=== PATIENT | female | born 1935 | race Caucasian/White ===

== ENCOUNTER → 2017-08-08 | Outpatient (CLI) | payer OTHER ==
[~2017-08-08] MED LIST: ASPI-378 PO; DILT60TA27 PO; MET50T PO; METF-370 PO; SIMV-13 PO
[2017-08-08 10:14] LABS: Basophils # (auto) 0.1 uL; Eosinophils # (auto) 0.2 uL; Eosinophils % (auto) 2.6 % (0.0-7.0); Hematocrit 41.8 % (36.0-46.0); Hemoglobin 13.8 g/dL (12.2-16.2); Lymphocytes # (auto) 1.2 uL; Lymphocytes % (auto) 18.2 % (10.0-50.0); Mean Corpuscular Hemoglobin 30.5 pg (28.0-32.0); Mean Corpuscular Volume 92.5 fL (80.0-100.0); Mean Platelet Volume 8.6 fL (6.9-10.8); Monocytes # (auto) 0.5 uL; Monocytes % (auto) 7.7 % (0.0-12.0); Neutrophils # (auto) 4.8 uL; Neutrophils % (auto) 70.5 % (37.0-80.0); Nucleated Red Blood Cells % 0.1 %; Platelet Count (auto) 234 10^3/uL (140-450); Red Cell Distribution Width 13.7 % (11.8-14.3); White Blood Cell 6.7 10^3/uL (4.4-10.8)
[2017-08-08 10:26] LABS: Albumin 3.7 g/dL (3.4-5.0); BUN/Creatinine Ratio 22.7; Bilirubin, Total 0.7 mg/dL (0.2-1.0); Calcium 8.6 mg/dL (8.5-10.1); Potassium 4.4 mmol/L (3.5-5.1); Total Protein 7.3 g/dL (6.4-8.2)
[2017-08-08 10:27] LABS: Urine Bilirubin Negative (Negative); Urine Blood Negative /uL (Negative); Urine Color Yellow (Yellow); Urine Glucose Normal (Normal); Urine Ketone Negative (Negative); Urine Nitrite Negative (Negative); Urine RBC <1 /hpf (0 - 4); Urine Squamous Epithelial Cell FEW /hpf (<5); Urine Urobilinogen Normal (Negative); Urine pH 6.5 (5.0-8.0)
== END | disposition home or self-care (01) ==
LOC: LAB 09:33
PROVIDERS: ATTEND Internal Medicine
DX: I10 Essential (primary) hypertension (principal); E78.2 Mixed hyperlipidemia; E03.9 Hypothyroidism, unspecified; E11.9 Type 2 diabetes mellitus without complications; Z79.899 Other long term (current) drug therapy
CPT/HCPCS: 36415; 80053; 80061; 81001; 82043; 82306; 83036; 84443; 85025

== ENCOUNTER → 2018-03-28 | Outpatient (CLI) | payer OTHER ==
[~2018-03-28] MED LIST changes: -DILT60TA27 PO
[2018-03-28 09:18] LABS: Albumin 3.7 g/dL (3.4-5.0); Bilirubin, Direct 0.1 mg/dL (0-0.2); Bilirubin, Total 0.6 mg/dL (0.2-1.0); Total Protein 7.2 g/dL (6.4-8.2)
== END | disposition home or self-care (01) ==
LOC: LAB 08:08
PROVIDERS: ATTEND Internal Medicine
DX: Z12.11 Encounter for screening for malignant neoplasm of colon (principal); E11.9 Type 2 diabetes mellitus without complications; E78.2 Mixed hyperlipidemia; I10 Essential (primary) hypertension; Z87.891 Personal history of nicotine dependence; Z79.899 Other long term (current) drug therapy
CPT/HCPCS: 36415; 80061; 80076; 83036; 84443

== ENCOUNTER → 2018-04-03 | Outpatient (CLI) | payer OTHER | END | disposition home or self-care (01) | LOC: LAB 14:56 | PROVIDERS: ATTEND Internal Medicine | DX: Z12.11 Encounter for screening for malignant neoplasm of colon (principal); E11.9 Type 2 diabetes mellitus without complications; E78.2 Mixed hyperlipidemia; Z87.891 Personal history of nicotine dependence; Z79.899 Other long term (current) drug therapy | CPT/HCPCS: 82270 ==

== ENCOUNTER → 2018-11-07 | Outpatient (CLI) | payer OTHER | END | disposition home or self-care (01) | LOC: LAB 16:18 | PROVIDERS: ATTEND Physician Assistant | DX: R30.0 Dysuria (principal) | CPT/HCPCS: 87086 ==

== ENCOUNTER 2021-02-12 16:41 | Inpatient (IN) | payer OTHER ==
[~2021-02-12] VITALS: Ht 165.1 cm; Wt 80.9 kg
[~2021-02-12 16:41] MED LIST changes: -ASPI-378 PO; +IMIP25TA34 PO; +MEMA1TAB3 PO; -MET50T PO; -METF-370 PO
[2021-02-12] MEDS ORDERED: SODIUM CHLORIDE 0.9% 1,000 ML IVB ONE (17:00)
[2021-02-12 17:21] LABS: Basophils # (auto) 0.1 10 ^3/uL (0-0.2); Basophils % (auto) 0.4 % (0.0-2.0); Eosinophils # (auto) 0 10 ^3/uL (0-0.8); Hematocrit 35.2 % (36.0-46.0); Hemoglobin 11.8 g/dL (12.2-16.2); Lymphocytes # (auto) 0.2 10 ^3/uL (0.4-5.4); Lymphocytes % (auto) 1.5 % (10.0-50.0); Mean Corpuscular Hemoglobin 30.4 pg (28.0-32.0); Mean Corpuscular Hgb Conc. 33.4 g/dL (32.0-36.0); Monocytes # (auto) 0.8 10 ^3/uL (0-1.3); Monocytes % (auto) 6.2 % (0.0-12.0); Neutrophils # (auto) 12.6 10 ^3/uL (1.6-8.6); Neutrophils % (auto) 91.9 % (37.0-80.0); Nucleated Red Blood Cells % 0.1 %; Platelet Count (auto) 218 10^3/uL (140-450); Red Blood Cells 3.87 10^6/uL (4.0-5.20); Red Cell Distribution Width 13.8 % (11.8-14.3); White Blood Cell 13.7 10^3/uL (4.4-10.8)
[2021-02-12 17:39] LABS: Alanine Aminotransferase 12 U/L (13-56); Albumin 3.1 g/dL (3.4-5.0); Anion Gap 9 (5-15); Aspartate Aminotransferase 12 U/L (15-37); BUN/Creatinine Ratio 13.8; Blood Urea Nitrogen 23 mg/dL (7-18); Calcium 7.8 mg/dL (8.5-10.1); Carbon Dioxide 19 mmol/L (21-32); Chloride 108 mmol/L (98-107); GFR African American 37 mL/min; GFR Non-African American 31 mL/min; Glucose 204 mg/dL (74-106); Magnesium 1.8 mg/dL (1.6-2.6); Potassium 3.8 mmol/L (3.5-5.1); Sodium 136 mmol/L (136-145)
[2021-02-12 17:42] LABS: Alkaline Phosphatase 82 U/L (45-117); Total Protein 7.2 g/dL (6.4-8.2)
[2021-02-12 17:45] LABS: Lactic Acid w/Reflex 2.3 mmol/L (0.4-2.0)
[2021-02-12] MEDS ORDERED: TETANUS-DIPTH-ACEL PERTUSSIS 0.5ML SYR Tdap IM ONE (18:15)
[2021-02-12] MEDS ORDERED: cefTRIAXone 1GM/50ML D5W 50 ML IV ONE (18:15)
[2021-02-12 18:16] LABS: INR 0.99 (0.9-1.15)
[2021-02-12 18:17] LABS: Partial Thromboplastin Time 21.4 sec (23.0-31.2)
[2021-02-12] MEDS ORDERED: NITROGLYCERIN 0.4 MG SL TAB SL PRN (19:00)
[2021-02-12] MEDS ORDERED: MORPHINE SULF INJ 2 MG/ML SYRINGE 1ML IV PRN (19:00)
[2021-02-12] MEDS ORDERED: ONDANSETRON HCL 4 MG/2 ML VIAL IV PRN (19:00)
[2021-02-12] MEDS ORDERED: DEXTROSE (50%) 50ML SYRG IV PRN (19:00)
[2021-02-12] MEDS ORDERED: ACETAMINOPHEN 500 MG TAB PO ONE (19:00)
[2021-02-12] MEDS ORDERED: DOCUSATE SOD 100 MG CAP PO PRN (19:00)
[2021-02-12] MEDS ORDERED: ACETAMINOPHEN 500 MG TAB PO PRN (19:00)
[2021-02-12] MEDS: DOXYCYCLINE 100MG/250ML 250 ML IV SCH (19:10)
[2021-02-12] MEDS: SODIUM CHLORIDE 0.9% 1,000 ML IV SCH (20:09)
[2021-02-12] MEDS ORDERED: SODIUM CHLORIDE 0.9% 500 ML IV ONE (21:00)
[2021-02-12] MEDS: ACCU-CHEK COMFORT CURVE STRIP VI SCH (22:00)
[2021-02-12] MEDS: InsuLIN REG 1unit/0.01ml Soln (100units/ml) SC SCH (22:00)
[2021-02-12] MEDS: CLINDAMYCIN 300MG IV 50 ML IV SCH (23:12)
[2021-02-12 23:48] VITALS: BP 104/68
[2021-02-13] MEDS: SODIUM CHLORIDE 0.9% 1,000 ML IV SCH ×4 (03:30→17:32)
[2021-02-13 04:56] VITALS: BP 98/56
[2021-02-13] MEDS: DOXYCYCLINE 100MG/250ML 250 ML IV SCH ×2 (06:10→17:32)
[2021-02-13] MEDS: CLINDAMYCIN 300MG IV 50 ML IV SCH ×3 (06:10→21:55)
[2021-02-13] MEDS: InsuLIN REG 1unit/0.01ml Soln (100units/ml) SC SCH ×4 (06:25→21:56)
[2021-02-13] MEDS: ACCU-CHEK COMFORT CURVE STRIP VI SCH ×4 (06:29→21:56)
[2021-02-13 08:00] VITALS: BP 109/57
[2021-02-13] MEDS: MEMANTINE HCL 5 MG TAB PO SCH (09:31)
[2021-02-13] MEDS: FLORASTOR (S. BOULARDII) 250 MG CAP PO SCH (09:31)
[2021-02-13] MEDS: FAMOTIDINE 20 MG TAB PO SCH (09:31)
[2021-02-13] MEDS ORDERED: SODIUM CHLORIDE 0.9% 1,000 ML IV ONE (11:15)
[2021-02-13 12:00] VITALS: BP 117/60
[2021-02-13] MEDS: HYDROcodone-ACET 5/325MG TAB PO PRN ×2 (13:08→21:45)
[2021-02-13 17:00] VITALS: BP 110/61
[2021-02-13] MEDS: ATORVASTATIN 20 MG TAB PO SCH (21:56)
[2021-02-13 22:00] VITALS: BP 126/66
[2021-02-14] MEDS: SODIUM CHLORIDE 0.9% 1,000 ML IV SCH ×4 (00:55→21:03)
[2021-02-14] MEDS: MORPHINE SULF INJ 2 MG/ML SYRINGE 1ML IV PRN (04:14)
[2021-02-14 05:00] VITALS: BP 147/70
[2021-02-14] MEDS: CLINDAMYCIN 300MG IV 50 ML IV SCH ×3 (05:56→21:03)
[2021-02-14] MEDS: ACCU-CHEK COMFORT CURVE STRIP VI SCH ×4 (06:15→21:04)
[2021-02-14] MEDS: InsuLIN REG 1unit/0.01ml Soln (100units/ml) SC SCH ×4 (06:16→21:04)
[2021-02-14] MEDS: DOXYCYCLINE 100MG/250ML 250 ML IV SCH ×2 (06:16→18:14)
[2021-02-14 09:00] VITALS: BP 118/67
[2021-02-14] MEDS: MEMANTINE HCL 5 MG TAB PO SCH (10:18)
[2021-02-14] MEDS: FLORASTOR (S. BOULARDII) 250 MG CAP PO SCH (10:18)
[2021-02-14] MEDS: FAMOTIDINE 20 MG TAB PO SCH (10:18)
[2021-02-14 13:00] VITALS: BP 132/66
[2021-02-14 16:36] VITALS: BP 133/71
[2021-02-14] MEDS: ATORVASTATIN 20 MG TAB PO SCH (21:03)
[2021-02-14] MEDS: HYDROcodone-ACET 5/325MG TAB PO PRN (21:04)
[2021-02-14 22:21] VITALS: BP 147/74
[2021-02-15] MEDS: SODIUM CHLORIDE 0.9% 1,000 ML IV SCH ×4 (04:22→23:15)
[2021-02-15 05:00] VITALS: BP 135/69
[2021-02-15] MEDS: CLINDAMYCIN 300MG IV 50 ML IV SCH ×3 (05:12→22:18)
[2021-02-15] MEDS: ACCU-CHEK COMFORT CURVE STRIP VI SCH ×4 (06:56→22:19)
[2021-02-15] MEDS: DOXYCYCLINE 100MG/250ML 250 ML IV SCH (06:56)
[2021-02-15] MEDS: InsuLIN REG 1unit/0.01ml Soln (100units/ml) SC SCH ×4 (06:57→22:00)
[2021-02-15 08:57] VITALS: BP 129/73
[2021-02-15] MEDS: FAMOTIDINE 20 MG TAB PO SCH (09:59)
[2021-02-15] MEDS: FLORASTOR (S. BOULARDII) 250 MG CAP PO SCH (09:59)
[2021-02-15] MEDS: MEMANTINE HCL 5 MG TAB PO SCH (09:59)
[2021-02-15] MEDS ORDERED: AZITHROMYCIN 500MG/ 250ML 250 ML IV SCH (10:00)
[2021-02-15] MEDS ORDERED: AZITHROMYCIN 500MG/ 250ML 250 ML IV ONE (10:00)
[2021-02-15] MEDS: HYDROcodone-ACET 5/325MG TAB PO PRN (12:29)
[2021-02-15 13:00] VITALS: BP 125/69
[2021-02-15 17:11] VITALS: BP 136/70
[2021-02-15] MEDS: ATORVASTATIN 20 MG TAB PO SCH (22:18)
[2021-02-16 05:00] VITALS: BP 138/90
[2021-02-16] MEDS: CLINDAMYCIN 300MG IV 50 ML IV SCH ×3 (05:49→21:25)
[2021-02-16] MEDS: SODIUM CHLORIDE 0.9% 1,000 ML IV SCH ×3 (05:55→23:53)
[2021-02-16] MEDS: InsuLIN REG 1unit/0.01ml Soln (100units/ml) SC SCH ×4 (06:51→21:26)
[2021-02-16] MEDS: ACCU-CHEK COMFORT CURVE STRIP VI SCH ×4 (06:51→21:26)
[2021-02-16] MEDS ORDERED: LORazepam 2MG/ML-1ML VIAL IV ONE (07:00)
[2021-02-16 09:00] VITALS: BP 136/70
[2021-02-16] MEDS: [UNRECOGNIZED DRUG - OTHER] PO SCH ×2 (10:00→21:25)
[2021-02-16] MEDS: IMIPRAMINE PO SCH ×2 (10:00→21:25)
[2021-02-16] MEDS: MEMANTINE HCL 5 MG TAB PO SCH (10:24)
[2021-02-16] MEDS: AZITHROMYCIN 500MG/ 250ML 250 ML IV SCH (10:27)
[2021-02-16] MEDS: FAMOTIDINE 20 MG TAB PO SCH (10:27)
[2021-02-16] MEDS: FLORASTOR (S. BOULARDII) 250 MG CAP PO SCH (10:28)
[2021-02-16 10:50] LABS: Basophils # (auto) 0.1 10 ^3/uL (0-0.2); Basophils % (auto) 0.6 % (0.0-2.0); Eosinophils # (auto) 0.2 10 ^3/uL (0-0.8); Eosinophils % (auto) 1.5 % (0.0-7.0); Hematocrit 35.1 % (36.0-46.0); Hemoglobin 11.8 g/dL (12.2-16.2); Lymphocytes # (auto) 0.6 10 ^3/uL (0.4-5.4); Lymphocytes % (auto) 5.7 % (10.0-50.0); Mean Corpuscular Hemoglobin 30.1 pg (28.0-32.0); Mean Corpuscular Hgb Conc. 33.7 g/dL (32.0-36.0); Mean Corpuscular Volume 89.4 fL (80.0-100.0); Monocytes # (auto) 0.7 10 ^3/uL (0-1.3); Neutrophils # (auto) 8.6 10 ^3/uL (1.6-8.6); Neutrophils % (auto) 85.2 % (37.0-80.0); Nucleated Red Blood Cells % 0.1 %; Platelet Count (auto) 306 10^3/uL (140-450); Red Blood Cells 3.93 10^6/uL (4.0-5.20); Red Cell Distribution Width 14.1 % (11.8-14.3); White Blood Cell 10.1 10^3/uL (4.4-10.8)
[2021-02-16 12:00] VITALS: BP 137/73
[2021-02-16] MEDS: ATORVASTATIN 20 MG TAB PO SCH (21:25)
[2021-02-16 22:00] VITALS: BP 148/73
[2021-02-17] MEDS: SODIUM CHLORIDE 0.9% 1,000 ML IV SCH ×4 (01:55→21:55)
[2021-02-17 05:00] VITALS: BP 147/76
[2021-02-17] MEDS: ACCU-CHEK COMFORT CURVE STRIP VI SCH ×4 (05:17→21:58)
[2021-02-17] MEDS: CLINDAMYCIN 300MG IV 50 ML IV SCH ×3 (05:17→21:58)
[2021-02-17] MEDS: InsuLIN REG 1unit/0.01ml Soln (100units/ml) SC SCH ×4 (05:24→22:00)
[2021-02-17 09:00] VITALS: BP 142/80
[2021-02-17] MEDS: [UNRECOGNIZED DRUG - OTHER] PO SCH ×2 (10:00→22:00)
[2021-02-17] MEDS: IMIPRAMINE PO SCH ×2 (10:00→22:00)
[2021-02-17] MEDS: FAMOTIDINE 20 MG TAB PO SCH (10:07)
[2021-02-17] MEDS: MEMANTINE HCL 5 MG TAB PO SCH (10:07)
[2021-02-17] MEDS: AZITHROMYCIN 500MG/ 250ML 250 ML IV SCH (10:07)
[2021-02-17] MEDS: FLORASTOR (S. BOULARDII) 250 MG CAP PO SCH (10:07)
[2021-02-17] MEDS: HYDROcodone-ACET 5/325MG TAB PO PRN (10:08)
[2021-02-17] MEDS: MORPHINE SULF INJ 2 MG/ML SYRINGE 1ML IV PRN (11:17)
[2021-02-17] MEDS ORDERED: LORazepam 2MG/ML-1ML VIAL IV ONE (11:30)
[2021-02-17 13:00] VITALS: BP 144/77
[2021-02-17 13:42] LABS: Basophils # (auto) 0 10 ^3/uL (0-0.2); Basophils % (auto) 0.5 % (0.0-2.0); Eosinophils # (auto) 0.2 10 ^3/uL (0-0.8); Eosinophils % (auto) 2.9 % (0.0-7.0); Hematocrit 34.9 % (36.0-46.0); Hemoglobin 11.7 g/dL (12.2-16.2); Lymphocytes # (auto) 0.6 10 ^3/uL (0.4-5.4); Lymphocytes % (auto) 6.9 % (10.0-50.0); Mean Corpuscular Hemoglobin 29.9 pg (28.0-32.0); Mean Corpuscular Hgb Conc. 33.5 g/dL (32.0-36.0); Mean Corpuscular Volume 89.1 fL (80.0-100.0); Monocytes % (auto) 11.9 % (0.0-12.0); Neutrophils # (auto) 6.7 10 ^3/uL (1.6-8.6); Neutrophils % (auto) 77.8 % (37.0-80.0); Platelet Count (auto) 304 10^3/uL (140-450); Red Blood Cells 3.92 10^6/uL (4.0-5.20); Red Cell Distribution Width 13.9 % (11.8-14.3); White Blood Cell 8.6 10^3/uL (4.4-10.8)
[2021-02-17 13:58] LABS: INR 0.99 (0.9-1.15); Partial Thromboplastin Time 26.5 sec (23.0-31.2)
[2021-02-17 14:02] LABS: Albumin 2.5 g/dL (3.4-5.0); Calcium 8.5 mg/dL (8.5-10.1); Potassium 3.9 mmol/L (3.5-5.1)
[2021-02-17 14:06] LABS: Bilirubin, Total 0.3 mg/dL (0.2-1.0); Total Protein 6.9 g/dL (6.4-8.2)
[2021-02-17] MEDS: MEROPENEM 1GM IVPB 100 ML IV SCH ×2 (14:57→23:28)
[2021-02-17] MEDS: HYDROmorphone HCL 2 MG/ML VL IV PRN ×2 (14:58→22:09)
[2021-02-17 17:00] VITALS: BP 149/87
[2021-02-17] MEDS: ATORVASTATIN 20 MG TAB PO SCH (21:58)
[2021-02-17 22:05] VITALS: BP 140/66
[2021-02-18] VITALS (7 sets, daily range): BP systolic 129–180; BP diastolic 60–95
[2021-02-18] MEDS: HYDROmorphone HCL 2 MG/ML VL IV PRN ×2 (03:31→08:41)
[2021-02-18] MEDS: SODIUM CHLORIDE 0.9% 1,000 ML IV SCH ×3 (05:30→17:22)
[2021-02-18] MEDS: CLINDAMYCIN 300MG IV 50 ML IV SCH ×3 (05:45→21:27)
[2021-02-18] MEDS: InsuLIN REG 1unit/0.01ml Soln (100units/ml) SC SCH ×4 (06:20→21:29)
[2021-02-18] MEDS: ACCU-CHEK COMFORT CURVE STRIP VI SCH ×4 (06:20→21:29)
[2021-02-18] MEDS: FAMOTIDINE 20 MG TAB PO SCH (09:27)
[2021-02-18] MEDS: IMIPRAMINE PO SCH ×2 (09:27→21:27)
[2021-02-18] MEDS: FLORASTOR (S. BOULARDII) 250 MG CAP PO SCH (09:27)
[2021-02-18] MEDS: [UNRECOGNIZED DRUG - OTHER] PO SCH ×2 (09:27→21:27)
[2021-02-18] MEDS: MEMANTINE HCL 5 MG TAB PO SCH (09:27)
[2021-02-18] MEDS: MEROPENEM 1GM IVPB 100 ML IV SCH ×2 (11:18→23:56)
[2021-02-18] MEDS: LORazepam 2MG/ML-1ML VIAL IV PRN (21:27)
[2021-02-18] MEDS: ATORVASTATIN 20 MG TAB PO SCH (21:27)
[2021-02-19] MEDS: SODIUM CHLORIDE 0.9% 1,000 ML IV SCH ×4 (00:02→22:52)
[2021-02-19] MEDS: HYDROmorphone HCL 2 MG/ML VL IV PRN (00:37)
[2021-02-19 05:00] VITALS: BP 150/90
[2021-02-19] MEDS: CLINDAMYCIN 300MG IV 50 ML IV SCH ×3 (05:38→22:52)
[2021-02-19] MEDS: ACCU-CHEK COMFORT CURVE STRIP VI SCH ×4 (06:24→22:53)
[2021-02-19] MEDS: InsuLIN REG 1unit/0.01ml Soln (100units/ml) SC SCH ×4 (06:25→22:00)
[2021-02-19 09:00] VITALS: BP 153/80
[2021-02-19] MEDS: MEMANTINE HCL 5 MG TAB PO SCH (09:32)
[2021-02-19] MEDS: FLORASTOR (S. BOULARDII) 250 MG CAP PO SCH (09:32)
[2021-02-19] MEDS: [UNRECOGNIZED DRUG - OTHER] PO SCH ×2 (09:33→22:00)
[2021-02-19] MEDS: IMIPRAMINE PO SCH ×2 (09:33→22:00)
[2021-02-19] MEDS: FAMOTIDINE 20 MG TAB PO SCH (09:33)
[2021-02-19 10:32] LABS: Basophils # (auto) 0.1 10 ^3/uL (0-0.2); Basophils % (auto) 0.8 % (0.0-2.0); Eosinophils # (auto) 0.2 10 ^3/uL (0-0.8); Eosinophils % (auto) 3.1 % (0.0-7.0); Hematocrit 37.3 % (36.0-46.0); Hemoglobin 12.6 g/dL (12.2-16.2); Lymphocytes # (auto) 0.8 10 ^3/uL (0.4-5.4); Lymphocytes % (auto) 11.2 % (10.0-50.0); Mean Corpuscular Hemoglobin 29.9 pg (28.0-32.0); Mean Corpuscular Hgb Conc. 33.7 g/dL (32.0-36.0); Mean Corpuscular Volume 88.8 fL (80.0-100.0); Monocytes # (auto) 0.9 10 ^3/uL (0-1.3); Monocytes % (auto) 12.9 % (0.0-12.0); Neutrophils # (auto) 5.2 10 ^3/uL (1.6-8.6); Nucleated Red Blood Cells % 0.1 %; Platelet Count (auto) 367 10^3/uL (140-450); Red Cell Distribution Width 13.5 % (11.8-14.3); White Blood Cell 7.2 10^3/uL (4.4-10.8)
[2021-02-19 10:51] LABS: Albumin 2.9 g/dL (3.4-5.0); Potassium 4.1 mmol/L (3.5-5.1)
[2021-02-19 10:55] LABS: BUN/Creatinine Ratio 14.9; Bilirubin, Total 0.5 mg/dL (0.2-1.0); Total Protein 7.4 g/dL (6.4-8.2)
[2021-02-19] MEDS ORDERED: VANCOMYCIN PER PHARMACY 0 MG IV SCH (11:15)
[2021-02-19] MEDS: MEROPENEM 1GM IVPB 100 ML IV SCH (11:31)
[2021-02-19 13:00] VITALS: BP 134/65
[2021-02-19] MEDS: VANCOMYCIN 1GM/250ML 250 ML IV SCH (15:04)
[2021-02-19 17:00] VITALS: BP 139/75
[2021-02-19 21:58] VITALS: BP 121/72
[2021-02-19] MEDS ORDERED: MEROPENEM 1GM IVPB 100 ML IV SCH (22:00)
[2021-02-19] MEDS: ATORVASTATIN 20 MG TAB PO SCH (22:53)
[2021-02-20] MEDS: MEROPENEM 1GM IVPB 100 ML IV SCH ×3 (00:11→23:26)
[2021-02-20] MEDS: SODIUM CHLORIDE 0.9% 1,000 ML IV SCH ×4 (02:56→23:16)
[2021-02-20 05:01] VITALS: BP 139/79
[2021-02-20] MEDS: CLINDAMYCIN 300MG IV 50 ML IV SCH ×3 (05:58→21:35)
[2021-02-20 06:32] LABS: BUN/Creatinine Ratio 19.6; Calcium 8.9 mg/dL (8.5-10.1)
[2021-02-20] MEDS: ACCU-CHEK COMFORT CURVE STRIP VI SCH ×4 (06:36→21:35)
[2021-02-20] MEDS: InsuLIN REG 1unit/0.01ml Soln (100units/ml) SC SCH ×4 (06:36→21:56)
[2021-02-20 07:35] LABS: Basophils # (auto) 0.1 10 ^3/uL (0-0.2); Basophils % (auto) 0.9 % (0.0-2.0); Eosinophils # (auto) 0.4 10 ^3/uL (0-0.8); Eosinophils % (auto) 5.7 % (0.0-7.0); Hematocrit 35.9 % (36.0-46.0); Hemoglobin 12.1 g/dL (12.2-16.2); Lymphocytes # (auto) 0.9 10 ^3/uL (0.4-5.4); Lymphocytes % (auto) 14.1 % (10.0-50.0); Mean Corpuscular Hemoglobin 29.6 pg (28.0-32.0); Mean Corpuscular Hgb Conc. 33.8 g/dL (32.0-36.0); Mean Corpuscular Volume 87.7 fL (80.0-100.0); Monocytes # (auto) 0.8 10 ^3/uL (0-1.3); Monocytes % (auto) 11.5 % (0.0-12.0); Neutrophils # (auto) 4.5 10 ^3/uL (1.6-8.6); Neutrophils % (auto) 67.8 % (37.0-80.0); Platelet Count (auto) 396 10^3/uL (140-450); Red Blood Cells 4.09 10^6/uL (4.0-5.20); Red Cell Distribution Width 13.7 % (11.8-14.3); White Blood Cell 6.6 10^3/uL (4.4-10.8)
[2021-02-20 09:00] VITALS: BP 139/83
[2021-02-20] MEDS: MEMANTINE HCL 5 MG TAB PO SCH (09:17)
[2021-02-20] MEDS: [UNRECOGNIZED DRUG - OTHER] PO SCH ×2 (09:17→21:56)
[2021-02-20] MEDS: FAMOTIDINE 20 MG TAB PO SCH (09:17)
[2021-02-20] MEDS: IMIPRAMINE PO SCH ×2 (09:17→21:56)
[2021-02-20] MEDS: FLORASTOR (S. BOULARDII) 250 MG CAP PO SCH (09:17)
[2021-02-20 12:43] VITALS: BP 108/57
[2021-02-20] MEDS: VANCOMYCIN 1GM/250ML 250 ML IV SCH (15:04)
[2021-02-20] MEDS: LORazepam 2MG/ML-1ML VIAL IV PRN (15:39)
[2021-02-20 16:50] VITALS: BP 110/58
[2021-02-20] MEDS: ATORVASTATIN 20 MG TAB PO SCH (21:35)
[2021-02-20 21:51] VITALS: BP 161/75
[2021-02-21 04:35] VITALS: BP 160/81
[2021-02-21] MEDS: SODIUM CHLORIDE 0.9% 1,000 ML IV SCH ×3 (05:55→20:16)
[2021-02-21] MEDS: CLINDAMYCIN 300MG IV 50 ML IV SCH ×3 (06:40→22:00)
[2021-02-21] MEDS: ACCU-CHEK COMFORT CURVE STRIP VI SCH ×4 (06:40→22:00)
[2021-02-21] MEDS: InsuLIN REG 1unit/0.01ml Soln (100units/ml) SC SCH ×4 (06:51→22:00)
[2021-02-21 08:55] VITALS: BP 151/76
[2021-02-21] MEDS: [UNRECOGNIZED DRUG - OTHER] PO SCH ×2 (10:00→22:00)
[2021-02-21] MEDS: IMIPRAMINE PO SCH ×2 (10:00→22:00)
[2021-02-21] MEDS: MEROPENEM 1GM IVPB 100 ML IV SCH ×2 (11:33→23:00)
[2021-02-21] MEDS: FAMOTIDINE 20 MG TAB PO SCH (11:33)
[2021-02-21] MEDS: MEMANTINE HCL 5 MG TAB PO SCH (11:33)
[2021-02-21] MEDS: FLORASTOR (S. BOULARDII) 250 MG CAP PO SCH (11:33)
[2021-02-21 13:00] VITALS: BP 142/73
[2021-02-21 17:00] VITALS: BP 144/69
[2021-02-21] MEDS: VANCOMYCIN 1GM/250ML 250 ML IV SCH (18:58)
[2021-02-21 22:00] VITALS: BP 173/93
[2021-02-21] MEDS: ATORVASTATIN 20 MG TAB PO SCH (22:00)
[2021-02-22] MEDS: SODIUM CHLORIDE 0.9% 1,000 ML IV SCH ×2 (03:40→08:35)
[2021-02-22 05:00] VITALS: BP 160/74
[2021-02-22] MEDS: CLINDAMYCIN 300MG IV 50 ML IV SCH (06:00)
[2021-02-22] MEDS: ACCU-CHEK COMFORT CURVE STRIP VI SCH ×4 (07:00→22:00)
[2021-02-22] MEDS: InsuLIN REG 1unit/0.01ml Soln (100units/ml) SC SCH ×4 (07:00→22:00)
[2021-02-22 09:00] VITALS: BP 139/63
[2021-02-22] MEDS: IMIPRAMINE PO SCH ×2 (10:00→22:00)
[2021-02-22] MEDS: [UNRECOGNIZED DRUG - OTHER] PO SCH ×2 (10:00→22:00)
[2021-02-22] MEDS: MEMANTINE HCL 5 MG TAB PO SCH (10:27)
[2021-02-22] MEDS: FLORASTOR (S. BOULARDII) 250 MG CAP PO SCH (10:27)
[2021-02-22] MEDS: FAMOTIDINE 20 MG TAB PO SCH (10:27)
[2021-02-22] MEDS: MEROPENEM 1GM IVPB 100 ML IV SCH ×2 (11:00→23:00)
[2021-02-22 13:00] VITALS: BP 149/74
[2021-02-22] MEDS: diphenhdrAMINE HCL 25 MG CAP PO PRN (14:52)
[2021-02-22] MEDS: LORazepam 2MG/ML-1ML VIAL IV PRN (14:53)
[2021-02-22] MEDS: VANCOMYCIN 1GM/250ML 250 ML IV SCH (15:03)
[2021-02-22 16:50] VITALS: BP 157/79
[2021-02-22 22:00] VITALS: BP 137/67
[2021-02-22] MEDS: ATORVASTATIN 20 MG TAB PO SCH (23:00)
[2021-02-23 05:00] VITALS: BP 138/72
[2021-02-23] MEDS: InsuLIN REG 1unit/0.01ml Soln (100units/ml) SC SCH ×4 (07:00→22:00)
[2021-02-23] MEDS: ACCU-CHEK COMFORT CURVE STRIP VI SCH ×4 (07:00→22:00)
[2021-02-23 08:31] VITALS: BP 132/69
[2021-02-23] MEDS: FAMOTIDINE 20 MG TAB PO SCH (09:50)
[2021-02-23] MEDS: FLORASTOR (S. BOULARDII) 250 MG CAP PO SCH (09:51)
[2021-02-23] MEDS: MEMANTINE HCL 5 MG TAB PO SCH (09:51)
[2021-02-23] MEDS: [UNRECOGNIZED DRUG - OTHER] PO SCH ×2 (09:53→22:00)
[2021-02-23] MEDS: IMIPRAMINE PO SCH ×2 (09:53→22:00)
[2021-02-23] MEDS: MEROPENEM 1GM IVPB 100 ML IV SCH ×2 (12:26→23:00)
[2021-02-23 13:00] VITALS: BP 135/76
[2021-02-23] MEDS: VANCOMYCIN 1GM/250ML 250 ML IV SCH (14:40)
[2021-02-23] MEDS: diphenhdrAMINE HCL 25 MG CAP PO PRN (17:44)
[2021-02-23 20:00] VITALS: BP 174/88
[2021-02-23 22:00] VITALS: BP 174/88
[2021-02-23] MEDS: ATORVASTATIN 20 MG TAB PO SCH (22:00)
[2021-02-24 05:13] VITALS: BP 162/76
[2021-02-24] MEDS: InsuLIN REG 1unit/0.01ml Soln (100units/ml) SC SCH ×2 (06:23→11:26)
[2021-02-24] MEDS: ACCU-CHEK COMFORT CURVE STRIP VI SCH ×2 (06:24→11:26)
[2021-02-24 09:00] VITALS: BP 145/85
[2021-02-24] MEDS: MEMANTINE HCL 5 MG TAB PO SCH (09:30)
[2021-02-24] MEDS: FAMOTIDINE 20 MG TAB PO SCH (09:30)
[2021-02-24] MEDS: FLORASTOR (S. BOULARDII) 250 MG CAP PO SCH (09:30)
[2021-02-24] MEDS: [UNRECOGNIZED DRUG - OTHER] PO SCH (10:00)
[2021-02-24] MEDS: IMIPRAMINE PO SCH (10:00)
[2021-02-24] MEDS: MEROPENEM 1GM IVPB 100 ML IV SCH (10:57)
[2021-02-24] MEDS ORDERED: AMOXICILLIN/CLAVUL 875 MG TAB PO SCH (22:00)
== END 2021-02-24 16:35 | disposition home or self-care (01) | DRG 871 ==
LOC: ER 16:41 → TELE 16:42 → TELE-CENTR 23:14 → TELE-WESTW 02-17 05:03
PROVIDERS: ADMIT Nurse Practitioner Acute Care; ATTEND Family Medicine
PROC: 05HB33Z Insertion of Infusion Device into Right Basilic Vein, Percutaneous Approach (ICD-10-PCS; principal; 2021-02-15)
PROC: B54MZZA Ultrasonography of Right Upper Extremity Veins, Guidance (ICD-10-PCS; 2021-02-15)
PROC: 05HB33Z Insertion of Infusion Device into Right Basilic Vein, Percutaneous Approach (ICD-10-PCS; 2021-02-22)
PROC: B54MZZA Ultrasonography of Right Upper Extremity Veins, Guidance (ICD-10-PCS; 2021-02-22)
DX: A41.9 Sepsis, unspecified organism (principal); G93.41 Metabolic encephalopathy; L03.114 Cellulitis of left upper limb; A28.1 Cat-scratch disease; E44.1 Mild protein-calorie malnutrition; E66.9 Obesity, unspecified; E11.21 Type 2 diabetes mellitus with diabetic nephropathy; F41.9 Anxiety disorder, unspecified; I10 Essential (primary) hypertension; G30.9 Alzheimer's disease, unspecified; F02.80 Dementia in other diseases classified elsewhere, unspecified severity, without behavioral disturbance, psychotic disturbance, mood disturbance, and anxiety; S60.512A Abrasion of left hand, initial encounter; E11.9 Type 2 diabetes mellitus without complications; E78.00 Pure hypercholesterolemia, unspecified; R65.20 Severe sepsis without septic shock; Z20.822 Contact with and (suspected) exposure to COVID-19; E78.5 Hyperlipidemia, unspecified; Z68.30 Body mass index [BMI] 30.0-30.9, adult; Z88.1 Allergy status to other antibiotic agents; W55.01XA Bitten by cat, initial encounter; Z88.8 Allergy status to other drugs, medicaments and biological substances; Z68.28 Body mass index [BMI] 28.0-28.9, adult; Z87.891 Personal history of nicotine dependence; Z90.49 Acquired absence of other specified parts of digestive tract; Y93.89 Activity, other specified; Y92.89 Other specified places as the place of occurrence of the external cause; Y99.8 Other external cause status
CPT/HCPCS: 36415; 71045; 73110; 73200; 80048; 80053; 80202; 82550; 82565; 82962; 83036; 83605; 83735; 83880; 84443; 84484; 85025; 85610; 85730; 87040; 87426; 90471; 90715; 93005; 96361; 96365; 97110; 97116; 97530; G0378; J0696; J1815; J2185; J3490

== ENCOUNTER 2021-04-22 23:35 | Emergency (ER) | payer OTHER ==
[~2021-04-22] VITALS: Ht 167.6 cm; Wt 72.6 kg
[2021-04-22 23:45] VITALS: BP 138/67
== END 2021-04-23 02:41 | disposition home or self-care (01) ==
LOC: EDSEX 23:35 → ER 23:35 → EDBD 23:35 → ER 04-23 02:41
DX: S62.617A Displaced fracture of proximal phalanx of left little finger, initial encounter for closed fracture (principal); F03.90 Unspecified dementia, unspecified severity, without behavioral disturbance, psychotic disturbance, mood disturbance, and anxiety; Z88.1 Allergy status to other antibiotic agents; E11.9 Type 2 diabetes mellitus without complications; I10 Essential (primary) hypertension; Z86.73 Personal history of transient ischemic attack (TIA), and cerebral infarction without residual deficits; Z90.89 Acquired absence of other organs; Z87.891 Personal history of nicotine dependence; W19.XXXA Unspecified fall, initial encounter; Y93.89 Activity, other specified; Y92.89 Other specified places as the place of occurrence of the external cause; Y99.8 Other external cause status
CPT/HCPCS: 29130; 73130

== ENCOUNTER 2021-06-01 14:40 | Emergency (ER) | payer OTHER ==
[~2021-06-01] VITALS: Ht 165.1 cm; Wt 72.6 kg
[2021-06-01 16:46] VITALS: BP 105/54
== END 2021-06-01 17:28 | disposition home or self-care (01) ==
LOC: ER 14:40
DX: S09.90XA Unspecified injury of head, initial encounter (principal); S50.01XA Contusion of right elbow, initial encounter; R07.89 Other chest pain; E11.9 Type 2 diabetes mellitus without complications; I10 Essential (primary) hypertension; E78.5 Hyperlipidemia, unspecified; Z90.89 Acquired absence of other organs; Z85.841 Personal history of malignant neoplasm of brain; Z88.1 Allergy status to other antibiotic agents; Z88.8 Allergy status to other drugs, medicaments and biological substances; W19.XXXA Unspecified fall, initial encounter; Y93.89 Activity, other specified; Y92.89 Other specified places as the place of occurrence of the external cause; Y99.8 Other external cause status
CPT/HCPCS: 70450; 72125; 73080; 93005; 99285; J7030

== ENCOUNTER 2021-06-18 16:19 | Emergency (ER) | payer OTHER ==
[~2021-06-18] VITALS: Ht 165.1 cm; Wt 81.6 kg
[2021-06-18 19:17] LABS: Basophils # (auto) 0.1 10 ^3/uL (0-0.2); Basophils % (auto) 0.9 % (0.0-2.0); Eosinophils # (auto) 0.2 10 ^3/uL (0-0.8); Eosinophils % (auto) 1.8 % (0.0-7.0); Hematocrit 41.5 % (36.0-46.0); Hemoglobin 14.2 g/dL (12.2-16.2); Lymphocytes # (auto) 0.8 10 ^3/uL (0.4-5.4); Lymphocytes % (auto) 9.6 % (10.0-50.0); Mean Corpuscular Hemoglobin 30.7 pg (28.0-32.0); Mean Corpuscular Hgb Conc. 34.3 g/dL (32.0-36.0); Mean Corpuscular Volume 89.4 fL (80.0-100.0); Monocytes # (auto) 0.8 10 ^3/uL (0-1.3); Monocytes % (auto) 9.6 % (0.0-12.0); Neutrophils # (auto) 6.6 10 ^3/uL (1.6-8.6); Neutrophils % (auto) 78.1 % (37.0-80.0); Nucleated Red Blood Cells % 0.2 %; Red Blood Cells 4.64 10^6/uL (4.0-5.20); Red Cell Distribution Width 15.1 % (11.8-14.3); White Blood Cell 8.5 10^3/uL (4.4-10.8)
[2021-06-18 19:34] LABS: Chloride 113 mmol/L (98-107); Potassium 3.2 mmol/L (3.5-5.1); Sodium 139 mmol/L (136-145)
[2021-06-18 19:40] LABS: Alanine Aminotransferase 15 U/L (13-56); Albumin 3.3 g/dL (3.4-5.0); Anion Gap 11 (5-15); Aspartate Aminotransferase 15 U/L (15-37); BUN/Creatinine Ratio 11.8; Blood Urea Nitrogen 24 mg/dL (7-18); Calcium 8.6 mg/dL (8.5-10.1); Carbon Dioxide 15 mmol/L (21-32); GFR African American 30 mL/min; GFR Non-African American 25 mL/min; Glucose 109 mg/dL (74-106)
[2021-06-18 19:48] LABS: Alkaline Phosphatase 92 U/L (45-117); Bilirubin, Total 0.7 mg/dL (0.2-1.0)
[2021-06-18 22:30] VITALS: BP 152/73
== END 2021-06-18 22:46 | disposition home or self-care (01) ==
LOC: ER 16:21
DX: S01.511A Laceration without foreign body of lip, initial encounter (principal); S51.811A Laceration without foreign body of right forearm, initial encounter; S50.01XA Contusion of right elbow, initial encounter; S80.01XA Contusion of right knee, initial encounter; S09.8XXA Other specified injuries of head, initial encounter; R51.9 Headache, unspecified; F17.210 Nicotine dependence, cigarettes, uncomplicated; F03.90 Unspecified dementia, unspecified severity, without behavioral disturbance, psychotic disturbance, mood disturbance, and anxiety; I25.10 Atherosclerotic heart disease of native coronary artery without angina pectoris; E11.9 Type 2 diabetes mellitus without complications; E78.5 Hyperlipidemia, unspecified; I10 Essential (primary) hypertension; Z88.1 Allergy status to other antibiotic agents; Z91.018 Allergy to other foods; Z79.899 Other long term (current) drug therapy; Z87.440 Personal history of urinary (tract) infections; Z90.89 Acquired absence of other organs; Z98.890 Other specified postprocedural states; W01.198A Fall on same level from slipping, tripping and stumbling with subsequent striking against other object, initial encounter; Y93.89 Activity, other specified; Y92.002 Bathroom of unspecified non-institutional (private) residence as the place of occurrence of the external cause; Y99.8 Other external cause status
CPT/HCPCS: 36415; 70450; 70486; 71045; 72125; 72170; 73080; 73562; 80053; 82962; 84484; 85025; 93005

== ENCOUNTER 2021-07-30 15:36 | Inpatient (IN) | payer OTHER ==
[~2021-07-30] VITALS: Ht 152.4 cm; Wt 71.6 kg
[2021-07-30 16:33] LABS: Basophils # (auto) 0 10 ^3/uL (0-0.2); Basophils % (auto) 0.3 % (0.0-2.0); Eosinophils # (auto) 0 10 ^3/uL (0-0.8); Eosinophils % (auto) 0.3 % (0.0-7.0); Hematocrit 49.1 % (36.0-46.0); Hemoglobin 16.3 g/dL (12.2-16.2); Lymphocytes # (auto) 0.5 10 ^3/uL (0.4-5.4); Mean Corpuscular Hgb Conc. 33.2 g/dL (32.0-36.0); Mean Corpuscular Volume 90.3 fL (80.0-100.0); Monocytes # (auto) 0.5 10 ^3/uL (0-1.3); Monocytes % (auto) 5.2 % (0.0-12.0); Neutrophils # (auto) 9.4 10 ^3/uL (1.6-8.6); Neutrophils % (auto) 89.2 % (37.0-80.0); Nucleated Red Blood Cells % 0.1 %; Red Blood Cells 5.44 10^6/uL (4.0-5.20); Red Cell Distribution Width 15.4 % (11.8-14.3); White Blood Cell 10.5 10^3/uL (4.4-10.8)
[2021-07-30 16:55] LABS: Albumin 3.4 g/dL (3.4-5.0); BUN/Creatinine Ratio 19.6; Bilirubin, Total 0.9 mg/dL (0.2-1.0); Total Protein 7.8 g/dL (6.4-8.2)
[2021-07-30 16:57] LABS: Potassium 2.5 mmol/L (3.5-5.1)
[2021-07-30] MEDS ORDERED: POTASSIUM EFFERVESENT TAB 25 MEQ PO ONE (17:00)
[2021-07-30] MEDS ORDERED: SODIUM CHLORIDE 0.9% 1,000 ML IV SCH (19:30)
[2021-07-30] MEDS ORDERED: NITROGLYCERIN 0.4 MG SL TAB SL PRN (19:30)
[2021-07-30] MEDS ORDERED: SODIUM CHLORIDE 0.9% 500 ML IV ONE (19:30)
[2021-07-30] MEDS ORDERED: ACETAMINOPHEN 500 MG TAB PO PRN (19:30)
[2021-07-30] MEDS ORDERED: MORPHINE SULFATE INJECTION 2 MG/ML SYRG IV PRN ×2 (19:30)
[2021-07-30] MEDS ORDERED: SODIUM BICARBONATE 8.4 % INJ 50ML VIAL IV ONE (20:23)
[2021-07-30] MEDS: SODIUM BICARBONATE 50ML VIAL 50 ML in D5W 5% 1,000 ML IV SCH ×2 (20:32→22:32)
[2021-07-30 21:47] LABS: CRP High Sensitivity 0.19 mg/dL (< 0.3)
[2021-07-30] MEDS: ATORVASTATIN 20 MG TAB PO SCH (22:00)
[2021-07-30] MEDS ORDERED: METOPROLOL TARTRATE 25 MG TAB PO SCH (22:00)
[2021-07-30 23:15] VITALS: BP 120/68
[2021-07-31 00:30] VITALS: BP 120/68
[2021-07-31 05:00] VITALS: BP 106/52
[2021-07-31] MEDS ORDERED: GLUCAGON HYDROCHLORIDE (RDNA) 1 MG VIAL IV ONE ×3 (08:00→16:45)
[2021-07-31] MEDS: SODIUM BICARBONATE 50ML VIAL 50 ML in D5W 5% 1,000 ML IV SCH (08:37)
[2021-07-31 08:50] VITALS: BP 105/57
[2021-07-31] MEDS: MEMANTINE HCL 5 MG TAB PO SCH (09:50)
[2021-07-31] MEDS: ASPirin-EC 81 mg tab PO SCH (09:50)
[2021-07-31] MEDS ORDERED: LISINOPRIL 10 MG TAB PO SCH (10:00)
[2021-07-31] MEDS ORDERED: DOPamine 1600MCG/ML D5W 250 ML IV SCH (10:45)
[2021-07-31 12:07] LABS: Urine Bacteria FEW /hpf (None Seen); Urine Blood 1+ /uL (Negative); Urine Specific Gravity 1.013 (1.001-1.035); Urine WBC 14 /hpf (0 - 5)
[2021-07-31 12:30] VITALS: BP_SYST 138; BP_SYST 158; BP_DIAS 65
[2021-07-31 16:24] LABS: Basophils # (auto) 0 10 ^3/uL (0-0.2); Basophils % (auto) 0.2 % (0.0-2.0); Eosinophils # (auto) 0.1 10 ^3/uL (0-0.8); Eosinophils % (auto) 0.6 % (0.0-7.0); Hematocrit 44.4 % (36.0-46.0); Hemoglobin 14.6 g/dL (12.2-16.2); Lymphocytes # (auto) 0.5 10 ^3/uL (0.4-5.4); Lymphocytes % (auto) 3.8 % (10.0-50.0); Mean Corpuscular Hemoglobin 29.6 pg (28.0-32.0); Mean Corpuscular Hgb Conc. 32.9 g/dL (32.0-36.0); Mean Corpuscular Volume 90.1 fL (80.0-100.0); Monocytes # (auto) 0.5 10 ^3/uL (0-1.3); Monocytes % (auto) 4.4 % (0.0-12.0); Neutrophils # (auto) 10.8 10 ^3/uL (1.6-8.6); Nucleated Red Blood Cells % 0.1 %; Red Blood Cells 4.93 10^6/uL (4.0-5.20); Red Cell Distribution Width 15.4 % (11.8-14.3); White Blood Cell 11.8 10^3/uL (4.4-10.8)
[2021-07-31 16:51] LABS: Albumin 2.2 g/dL (3.4-5.0); Calcium 8.2 mg/dL (8.5-10.1)
[2021-07-31 16:54] LABS: BUN/Creatinine Ratio 23.9; Bilirubin, Total 0.9 mg/dL (0.2-1.0); Total Protein 6.4 g/dL (6.4-8.2)
[2021-07-31 16:58] LABS: Potassium 2.6 mmol/L (3.5-5.1)
[2021-07-31] MEDS ORDERED: POTASSIUM CHL 20 Meq TABLET PO SCH ×2 (17:00→20:00)
[2021-07-31 20:00] VITALS: BP 90/61
[2021-07-31] MEDS: ATORVASTATIN 20 MG TAB PO SCH (20:52)
[2021-08-01] MEDS: SODIUM BICARBONATE 50ML VIAL 50 ML in D5W 5% 1,000 ML IV SCH ×2 (03:30→14:27)
[2021-08-01 06:00] VITALS: BP 107/59
[2021-08-01 06:04] LABS: Basophils # (auto) 0 10 ^3/uL (0-0.2); Basophils % (auto) 0.2 % (0.0-2.0); Eosinophils # (auto) 0.1 10 ^3/uL (0-0.8); Hematocrit 41.3 % (36.0-46.0); Hemoglobin 14.2 g/dL (12.2-16.2); Lymphocytes # (auto) 0.6 10 ^3/uL (0.4-5.4); Lymphocytes % (auto) 6.2 % (10.0-50.0); Mean Corpuscular Hemoglobin 30.9 pg (28.0-32.0); Mean Corpuscular Hgb Conc. 34.4 g/dL (32.0-36.0); Mean Corpuscular Volume 89.9 fL (80.0-100.0); Monocytes # (auto) 1.1 10 ^3/uL (0-1.3); Monocytes % (auto) 10.5 % (0.0-12.0); Neutrophils # (auto) 8.3 10 ^3/uL (1.6-8.6); Neutrophils % (auto) 82.1 % (37.0-80.0); Red Blood Cells 4.59 10^6/uL (4.0-5.20); Red Cell Distribution Width 15.3 % (11.8-14.3); White Blood Cell 10.1 10^3/uL (4.4-10.8)
[2021-08-01 06:53] LABS: Albumin 2.7 g/dL (3.4-5.0); BUN/Creatinine Ratio 22.2; Bilirubin, Total 0.7 mg/dL (0.2-1.0); Calcium 8.3 mg/dL (8.5-10.1); Total Protein 6.5 g/dL (6.4-8.2)
[2021-08-01 08:00] VITALS: BP 99/52
[2021-08-01 08:26] LABS: Potassium 2.8 mmol/L (3.5-5.1)
[2021-08-01] MEDS ORDERED: POTASSIUM EFFERVESENT TAB 25 MEQ PO ONE ×2 (08:45→10:45)
[2021-08-01] MEDS: ASPirin-EC 81 mg tab PO SCH (08:52)
[2021-08-01] MEDS: MEMANTINE HCL 5 MG TAB PO SCH (08:53)
[2021-08-01] MEDS ORDERED: cefTRIAXone 1GM/50ML D5W 50 ML IV ONE (11:15)
[2021-08-01 12:00] VITALS: BP 94/57
[2021-08-01] MEDS ORDERED: DOPamine 1600MCG/ML D5W 250 ML IV SCH ×3 (12:30→14:45)
[2021-08-01 16:47] VITALS: BP 102/52
[2021-08-01] MEDS: ATORVASTATIN 20 MG TAB PO SCH (21:50)
[2021-08-01 21:59] VITALS: BP 91/55
[2021-08-02] VITALS (10 sets, daily range): BP systolic 101–155; BP diastolic 52–82
[2021-08-02] MEDS: SODIUM BICARBONATE 50ML VIAL 50 ML in D5W 5% 1,000 ML IV SCH ×2 (03:16→11:00)
[2021-08-02 06:54] LABS: INR 1.03 (0.9-1.15); Partial Thromboplastin Time 25.9 sec (23.6-33.0)
[2021-08-02 07:20] LABS: Basophils # (auto) 0 10 ^3/uL (0-0.2); Basophils % (auto) 0.4 % (0.0-2.0); Eosinophils # (auto) 0.1 10 ^3/uL (0-0.8); Eosinophils % (auto) 1.3 % (0.0-7.0); Hematocrit 40.4 % (36.0-46.0); Hemoglobin 13.9 g/dL (12.2-16.2); Lymphocytes # (auto) 0.5 10 ^3/uL (0.4-5.4); Mean Corpuscular Hemoglobin 30.6 pg (28.0-32.0); Mean Corpuscular Hgb Conc. 34.4 g/dL (32.0-36.0); Mean Corpuscular Volume 89.1 fL (80.0-100.0); Monocytes # (auto) 0.8 10 ^3/uL (0-1.3); Monocytes % (auto) 9.2 % (0.0-12.0); Neutrophils # (auto) 6.9 10 ^3/uL (1.6-8.6); Neutrophils % (auto) 83.1 % (37.0-80.0); Red Blood Cells 4.53 10^6/uL (4.0-5.20); Red Cell Distribution Width 15.3 % (11.8-14.3); White Blood Cell 8.4 10^3/uL (4.4-10.8)
[2021-08-02 07:21] LABS: Calcium 8.3 mg/dL (8.5-10.1)
[2021-08-02 07:28] LABS: Albumin 2.6 g/dL (3.4-5.0); BUN/Creatinine Ratio 19.9; Bilirubin, Total 0.6 mg/dL (0.2-1.0); Total Protein 6.2 g/dL (6.4-8.2)
[2021-08-02] MEDS ORDERED: diphenhdrAMINE HCL 50 MG/1 ML VL ONE (08:07)
[2021-08-02] MEDS ORDERED: VANCOMYCIN HCL 1000 MG VL ONE (08:07)
[2021-08-02] MEDS ORDERED: LIDOCAINE 2%HCL (LOCAL ANESTH.) INJ 20ML MDV ONE (08:07)
[2021-08-02] MEDS ORDERED: VANCOMYCIN 1GM/250ML 250 ML IV ONE (08:07)
[2021-08-02] MEDS ORDERED: MIDAZOLAM HCL 2MG/2ML 2ml VIAL (1mg/ml) ONE (08:27)
[2021-08-02] MEDS: MEMANTINE HCL 5 MG TAB PO SCH ×2 (10:00→10:39)
[2021-08-02] MEDS: ASPirin-EC 81 mg tab PO SCH ×2 (10:00→10:39)
[2021-08-02] MEDS: cefTRIAXone 1GM/50ML D5W 50 ML IV SCH (10:38)
[2021-08-02] MEDS: POTASSIUM CHL 20MEQ/100ML 100 ML IV SCH ×2 (12:31→14:56)
[2021-08-02] MEDS: hydrALAZINE HCL 20 MG/ML VL IV PRN (13:20)
[2021-08-02] MEDS: HYDROcodone-ACET 5/325MG TAB PO PRN (17:44)
[2021-08-02] MEDS: POTASSIUM EFFERVESENT TAB 25 MEQ PO SCH (21:25)
[2021-08-02] MEDS: ATORVASTATIN 20 MG TAB PO SCH (21:26)
[2021-08-03] MEDS: SODIUM BICARBONATE 50ML VIAL 50 ML in D5W 5% 1,000 ML IV SCH ×3 (00:24→18:30)
[2021-08-03 04:48] VITALS: BP 115/78
[2021-08-03] MEDS: HYDROcodone-ACET 5/325MG TAB PO PRN (06:20)
[2021-08-03] MEDS: ONDANSETRON HCL 4 MG/2 ML VIAL IV PRN (06:30)
[2021-08-03 07:04] LABS: Calcium 8.4 mg/dL (8.5-10.1); Potassium 3.7 mmol/L (3.5-5.1)
[2021-08-03 07:07] LABS: BUN/Creatinine Ratio 17.5
[2021-08-03 08:50] VITALS: BP 125/63
[2021-08-03] MEDS: ASPirin-EC 81 mg tab PO SCH (09:35)
[2021-08-03] MEDS: cefTRIAXone 1GM/50ML D5W 50 ML IV SCH (09:35)
[2021-08-03] MEDS: MEMANTINE HCL 5 MG TAB PO SCH (09:36)
[2021-08-03] MEDS: POTASSIUM EFFERVESENT TAB 25 MEQ PO SCH ×2 (09:36→21:06)
[2021-08-03 12:56] VITALS: BP 125/63
[2021-08-03 13:00] VITALS: BP 119/64
[2021-08-03 17:00] VITALS: BP 113/68
[2021-08-03] MEDS: ATORVASTATIN 20 MG TAB PO SCH (21:07)
[2021-08-03 21:57] VITALS: BP 150/70
[2021-08-04] MEDS: SODIUM BICARBONATE 50ML VIAL 50 ML in D5W 5% 1,000 ML IV SCH ×2 (05:00→15:30)
[2021-08-04 05:05] VITALS: BP 151/58
[2021-08-04] MEDS: hydrALAZINE HCL 20 MG/ML VL IV PRN (05:26)
[2021-08-04] MEDS: ONDANSETRON HCL 4 MG/2 ML VIAL IV PRN (07:16)
[2021-08-04 09:00] VITALS: BP 108/52
[2021-08-04] MEDS: POTASSIUM EFFERVESENT TAB 25 MEQ PO SCH (09:20)
[2021-08-04] MEDS: ASPirin-EC 81 mg tab PO SCH (09:20)
[2021-08-04] MEDS: MEMANTINE HCL 5 MG TAB PO SCH (09:21)
[2021-08-04] MEDS: cefTRIAXone 1GM/50ML D5W 50 ML IV SCH (09:42)
[2021-08-04 13:00] VITALS: BP 97/61
== END 2021-08-04 18:30 | disposition home health service (06) | DRG 242 ==
LOC: ER 15:37 → TELE 19:28 → TELE-WESTW 23:15
PROVIDERS: ADMIT Nurse Practitioner Acute Care; ATTEND Family Medicine
PROC: 0JH606Z Insertion of Pacemaker, Dual Chamber into Chest Subcutaneous Tissue and Fascia, Open Approach (ICD-10-PCS; principal; 2021-08-02)
PROC: 02H64JZ Insertion of Pacemaker Lead into Right Atrium, Percutaneous Endoscopic Approach (ICD-10-PCS; 2021-08-02)
PROC: 02HK4JZ Insertion of Pacemaker Lead into Right Ventricle, Percutaneous Endoscopic Approach (ICD-10-PCS; 2021-08-02)
DX: R00.1 Bradycardia, unspecified (principal); G93.41 Metabolic encephalopathy; I21.4 Non-ST elevation (NSTEMI) myocardial infarction; N17.0 Acute kidney failure with tubular necrosis; E87.2 Acidosis; N39.0 Urinary tract infection, site not specified; I44.30 Unspecified atrioventricular block; I95.9 Hypotension, unspecified; E86.0 Dehydration; E87.6 Hypokalemia; E87.5 Hyperkalemia; M19.90 Unspecified osteoarthritis, unspecified site; N18.31 Chronic kidney disease, stage 3a; E78.5 Hyperlipidemia, unspecified; E11.22 Type 2 diabetes mellitus with diabetic chronic kidney disease; F02.80 Dementia in other diseases classified elsewhere, unspecified severity, without behavioral disturbance, psychotic disturbance, mood disturbance, and anxiety; G30.9 Alzheimer's disease, unspecified; I12.9 Hypertensive chronic kidney disease with stage 1 through stage 4 chronic kidney disease, or unspecified chronic kidney disease; I25.10 Atherosclerotic heart disease of native coronary artery without angina pectoris; Z20.822 Contact with and (suspected) exposure to COVID-19; W18.39XA Other fall on same level, initial encounter; Y93.01 Activity, walking, marching and hiking; Y92.091 Bathroom in other non-institutional residence as the place of occurrence of the external cause; Z88.8 Allergy status to other drugs, medicaments and biological substances; Z87.891 Personal history of nicotine dependence; Y99.8 Other external cause status
CPT/HCPCS: 36415; 36600; 70450; 71045; 72131; 72192; 80048; 80053; 80061; 81001; 82805; 82962; 83036; 83605; 83735; 84132; 84443; 84484; 85025; 85379; 85610; 85730; 86141; 87426; 93005; 93306; 93886; 96361; 96374; 99152; 99153; 99291; C1785; G0378; J0696; J2250; J2405; J3480

== ENCOUNTER 2021-08-10 17:03 | Inpatient (IN) | payer OTHER ==
[~2021-08-10] VITALS: Ht 172.7 cm; Wt 62.6 kg
[2021-08-10 18:34] LABS: Basophils # (auto) 0 10 ^3/uL (0-0.2); Basophils % (auto) 0.5 % (0.0-2.0); Eosinophils # (auto) 0 10 ^3/uL (0-0.8); Eosinophils % (auto) 0.7 % (0.0-7.0); Hematocrit 43.3 % (36.0-46.0); Hemoglobin 14.5 g/dL (12.2-16.2); Lymphocytes # (auto) 0.4 10 ^3/uL (0.4-5.4); Mean Corpuscular Hemoglobin 30.7 pg (28.0-32.0); Mean Corpuscular Hgb Conc. 33.5 g/dL (32.0-36.0); Mean Corpuscular Volume 91.8 fL (80.0-100.0); Monocytes # (auto) 0.3 10 ^3/uL (0-1.3); Monocytes % (auto) 4.7 % (0.0-12.0); Neutrophils # (auto) 6.5 10 ^3/uL (1.6-8.6); Neutrophils % (auto) 89.1 % (37.0-80.0); Nucleated Red Blood Cells % 0.1 %; Red Blood Cells 4.72 10^6/uL (4.0-5.20); Red Cell Distribution Width 15.3 % (11.8-14.3); White Blood Cell 7.3 10^3/uL (4.4-10.8)
[2021-08-10 18:55] LABS: Albumin 2.7 g/dL (3.4-5.0); Calcium 8.2 mg/dL (8.5-10.1); Magnesium 2.1 mg/dL (1.6-2.6); Potassium 3.9 mmol/L (3.5-5.1)
[2021-08-10 19:01] LABS: BUN/Creatinine Ratio 12.6; Bilirubin, Total 0.8 mg/dL (0.2-1.0); Total Protein 6.5 g/dL (6.4-8.2)
[2021-08-10] MEDS ORDERED: SODIUM CHLORIDE 0.9% 1,000 ML IV ONE (19:45)
[2021-08-11] MEDS ORDERED: ENOXAPARIN SOD 100 MG/1 ML SYRINGE SC ONE (04:30)
[2021-08-11] MEDS ORDERED: MORPHINE SULFATE INJECTION 2 MG/ML SYRG IV PRN (04:30)
[2021-08-11] MEDS ORDERED: ACETAMINOPHEN 325 MG TAB PO PRN (04:30)
[2021-08-11] MEDS ORDERED: ONDANSETRON HCL 4 MG/2 ML VIAL IV PRN (04:30)
[2021-08-11] MEDS ORDERED: NITROGLYCERIN 0.4 MG SL TAB SL PRN (04:30)
[2021-08-11 04:59] LABS: Urine Bacteria NONE SEEN /hpf (None Seen); Urine Blood Negative /uL (Negative); Urine Specific Gravity 1.012 (1.001-1.035); Urine WBC 21 /hpf (0 - 5)
[2021-08-11] MEDS: SODIUM CHLORIDE 0.9% 1,000 ML IV SCH ×2 (05:22→21:10)
[2021-08-11] MEDS: cefTRIAXone 1GM/50ML D5W 50 ML IV SCH (09:21)
[2021-08-11] MEDS: MEMANTINE HCL 5 MG TAB PO SCH (10:12)
[2021-08-11] MEDS: ASPirin 81 mg TAB PO SCH (10:12)
[2021-08-11] MEDS: ENOXAPARIN SOD 30 MG/0.3 ML SYRINGE SC SCH (10:13)
[2021-08-11] MEDS: PANTOPRAZOLE 40 MG TAB PO SCH (10:13)
[2021-08-11] MEDS: amLODIPine BESYLATE 5 MG TAB PO SCH (10:13)
[2021-08-11 13:00] VITALS: BP 134/67
[2021-08-11 14:31] LABS: Magnesium 2.1 mg/dL (1.6-2.6); Potassium 3.2 mmol/L (3.5-5.1)
[2021-08-11 14:38] LABS: BUN/Creatinine Ratio 12.1
[2021-08-11] MEDS ORDERED: POTASSIUM EFFERVESENT TAB 25 MEQ PO ONE (15:30)
[2021-08-11 17:00] VITALS: BP 125/63
[2021-08-11 22:00] VITALS: BP 122/67
[2021-08-11] MEDS ORDERED: ATORVASTATIN 20 MG TAB PO SCH (22:00)
[2021-08-12 05:00] VITALS: BP 165/86
[2021-08-12 06:11] VITALS: BP 129/71
[2021-08-12 07:05] LABS: Basophils # (auto) 0.1 10 ^3/uL (0-0.2); Basophils % (auto) 1.7 % (0.0-2.0); Eosinophils # (auto) 0.1 10 ^3/uL (0-0.8); Eosinophils % (auto) 1.8 % (0.0-7.0); Hematocrit 37.2 % (36.0-46.0); Hemoglobin 12.8 g/dL (12.2-16.2); Lymphocytes # (auto) 0.4 10 ^3/uL (0.4-5.4); Lymphocytes % (auto) 8.7 % (10.0-50.0); Mean Corpuscular Hemoglobin 30.8 pg (28.0-32.0); Mean Corpuscular Hgb Conc. 34.3 g/dL (32.0-36.0); Mean Corpuscular Volume 89.9 fL (80.0-100.0); Monocytes # (auto) 0.3 10 ^3/uL (0-1.3); Monocytes % (auto) 5.9 % (0.0-12.0); Neutrophils # (auto) 4.2 10 ^3/uL (1.6-8.6); Neutrophils % (auto) 81.9 % (37.0-80.0); Nucleated Red Blood Cells % 0.1 %; Red Blood Cells 4.14 10^6/uL (4.0-5.20); White Blood Cell 5.1 10^3/uL (4.4-10.8)
[2021-08-12 07:28] LABS: Potassium 4.1 mmol/L (3.5-5.1)
[2021-08-12 07:35] LABS: Calcium 8.1 mg/dL (8.5-10.1)
[2021-08-12] MEDS: MEMANTINE HCL 5 MG TAB PO SCH (09:40)
[2021-08-12] MEDS: amLODIPine BESYLATE 5 MG TAB PO SCH (09:40)
[2021-08-12] MEDS: ASPirin 81 mg TAB PO SCH (09:40)
[2021-08-12] MEDS: PANTOPRAZOLE 40 MG TAB PO SCH (09:42)
[2021-08-12] MEDS: ENOXAPARIN SOD 30 MG/0.3 ML SYRINGE SC SCH (09:42)
[2021-08-12] MEDS: cefTRIAXone 1GM/50ML D5W 50 ML IV SCH (10:35)
[2021-08-12 13:00] VITALS: BP 131/67
[2021-08-12] MEDS: SODIUM CHLORIDE 0.9% 1,000 ML IV SCH (16:38)
[2021-08-12 16:50] VITALS: BP 121/71
[2021-08-12 17:00] VITALS: BP_SYST 137; BP_SYST 173; BP_DIAS 70; BP_DIAS 78
== END 2021-08-12 18:08 | disposition hospice, home (50) | DRG 280 ==
LOC: ER 17:03 → EDBD 17:03 → TELE 08-11 04:29 → TELE-WESTW 08-11 11:48
PROVIDERS: ADMIT Nurse Practitioner; ATTEND Internal Medicine
DX: I21.4 Non-ST elevation (NSTEMI) myocardial infarction (principal); G93.41 Metabolic encephalopathy; N17.9 Acute kidney failure, unspecified; N39.0 Urinary tract infection, site not specified; I50.32 Chronic diastolic (congestive) heart failure; I13.0 Hypertensive heart and chronic kidney disease with heart failure and stage 1 through stage 4 chronic kidney disease, or unspecified chronic kidney disease; E86.0 Dehydration; R62.7 Adult failure to thrive; F02.80 Dementia in other diseases classified elsewhere, unspecified severity, without behavioral disturbance, psychotic disturbance, mood disturbance, and anxiety; N18.9 Chronic kidney disease, unspecified; Z20.822 Contact with and (suspected) exposure to COVID-19; E78.5 Hyperlipidemia, unspecified; G30.9 Alzheimer's disease, unspecified; E11.22 Type 2 diabetes mellitus with diabetic chronic kidney disease; I25.10 Atherosclerotic heart disease of native coronary artery without angina pectoris; Z66 Do not resuscitate; Z87.891 Personal history of nicotine dependence; Z95.0 Presence of cardiac pacemaker; Z88.1 Allergy status to other antibiotic agents; Z88.8 Allergy status to other drugs, medicaments and biological substances; Z90.49 Acquired absence of other specified parts of digestive tract
CPT/HCPCS: 36415; 70450; 71045; 80048; 80053; 81001; 83735; 83880; 84484; 85025; 87081; 87086; 87426; 96361; 96365; G0378; J0696